=== PATIENT | male | born 1990 | race Caucasian/White ===

== ENCOUNTER 2019-12-15 16:18 | Emergency (ER) | payer MEDICAID, SELFPAY ==
[2019-12-15 16:22] VITALS: BP 116/78; PULSE 98; RESP 14; TEMP 36.9; O2SAT 97; BMI 25.7
--- NOTE | 2019-12-15 16:28 | W.ED.GENADLT ---
HPI - General Adult General: Chief complaint: General Medical Stated complaint: wants std check Time Seen by Provider: 12/15/19 16:26 Source: patient Mode of arrival: ambulatory Limitations: no limitations History of Present Illness: HPI narrative: Patient comes in today with complaints of urinary difficulty and discomfort. Patient states his girlfriend has tested positive for trichomonas. Patient denies any fever or chills. Review of Systems General: Reports: 10 or more systems reviewed and unremarkable except in HPI and below : Reports: painful urination PFSH ED PFSH: Statuses (acute, chronic, etc) shown below reflect problem list status as previously entered and may not be historically accurate Social History Smoking and tobacco status: current every day smoker Physical Exam Const: COMMON NORMALS: no apparent distress and oriented x3 GENERAL APPEARANCE: cooperative HENMT: COMMON NORMALS: normocephalic, external ears normal, EAC's normal, TM's normal bilaterally and external nose normal HEAD & SCALP: normal to inspection and normocephalic FACE & SINUS: normal facial exam NOSE: external nose normal GENERAL EAR: hearing not grossly impaired EXTERNAL EAR: Yes external ears normal EXTERNAL AUDITORY CANAL: EAC's normal TYMPANIC MEMBRANE: TM's normal bilaterally MOUTH: oral and palatal mucosa normal THROAT: posterior oropharynx normal Eye: COMMON NORMALS: PERRL and EOMs intact bilaterally PUPIL: Yes PERRL Neck/C-Spine: COMMON NORMALS: full ROM and no lymphadenopathy Lymph: LYMPHATIC: no lymphedema noted Chest: COMMONS NORMALS: inspection of chest normal and palpation of chest normal Resp: COMMON NORMALS: normal respiratory effort and clear to auscultation bilaterally AUSCULTATION: clear to auscultation bilaterally Cardio: COMMON NORMALS: regular rate and regular rhythm RATE: regular rate RHYTHM: regular rhythm GI: COMMON NORMALS: normal to inspection, nondistended, normoactive bowel sounds and non-tender : COMMON NORMALS: Yes no CVA tenderness BLADDER/KIDNEY EXAM: Yes no CVA tenderness Back/Pelvis: COMMON NORMALS: no CVA tenderness and thoracic and lumbar spine normal to inspection Extremity: COMMON NORMALS: normal to inspection GENERAL: No edema Neuro: COMMON NORMALS: oriented x3, moves all extremities and no focal motor deficits Psych: COMMON NORMALS: mental status grossly normal and cooperative Skin: COMMON NORMALS: no rashes or lesions noted GENERAL SKIN EXAM: no rashes or lesions noted Course Vital Signs: Vital signs: Vital Signs Temperature 98.5 F 12/15/19 16:22 Pulse Rate 98 12/15/19 16:22 Respiratory Rate 14 12/15/19 16:22 Blood Pressure 116/78 12/15/19 16:22 Pulse Oximetry 97 12/15/19 16:22 MDM - General Adult MDM Narrative: Medical decision making narrative: Patient comes in today for complaints of exposure to trichomonas. Exam respirations were even lungs were clear to auscultation. Abdomen soft nontender. Differential diagnosis includes STI, contact dermatitis, urethritis, trichomonas. Patient was given metronidazole 500 mg to take 2000 mg x 1 for infection. Encourage plenty of fluids and activity. Reviewed exam and treatment with patient. Patient reports understanding agreed to plan. 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
== END 2019-12-15 16:43 | disposition home or self-care (01) ==
LOC: ER 16:52
PROVIDERS: Emergency Provider Nurse Practitioner Family
DX: Z20.2 Contact with and (suspected) exposure to infections with a predominantly sexual mode of transmission (principal); F17.200 Nicotine dependence, unspecified, uncomplicated
CPT/HCPCS: 99281

== ENCOUNTER 2020-01-07 20:11 | Emergency (ER) | payer MEDICAID, SELFPAY ==
[2020-01-07 20:39] VITALS: BP 133/94; PULSE 99; RESP 16; TEMP 37.4; O2SAT 96; BMI 28.3
== END 2020-01-07 23:40 | disposition left against medical advice (07) ==
LOC: ER 20:36
PROVIDERS: Emergency Provider Emergency Medicine
DX: K92.0 Hematemesis (principal); K21.9 Gastro-esophageal reflux disease without esophagitis; F17.200 Nicotine dependence, unspecified, uncomplicated; Z53.21 Procedure and treatment not carried out due to patient leaving prior to being seen by health care provider
CPT/HCPCS: 99281

== ENCOUNTER 2020-01-08 17:26 | Emergency (ER) | payer MEDICAID, SELFPAY ==
[2020-01-08 17:31] VITALS: BP 113/82; PULSE 101; RESP 15; TEMP 36.7; O2SAT 96; BMI 28.3
== END 2020-01-08 20:27 | disposition left against medical advice (07) ==
LOC: ER 19:28
PROVIDERS: Emergency Provider Emergency Medicine
DX: K92.0 Hematemesis (principal); R10.9 Unspecified abdominal pain; F17.200 Nicotine dependence, unspecified, uncomplicated; Z53.21 Procedure and treatment not carried out due to patient leaving prior to being seen by health care provider
CPT/HCPCS: 99281

== ENCOUNTER 2020-01-09 16:58 | Emergency (ER) | payer MEDICAID, SELFPAY ==
[2020-01-09] VITALS (28 sets, daily range): BP systolic 94–127; BP diastolic 56–81; PULSE 79–92; RESP 16–18; TEMP 37.3; O2SAT 94–100; BMI 28.3
--- NOTE | 2020-01-09 17:56 | ED_ITS ---
Entered by Yola Payton, acting as scribe for Brandi Bennett MD HPI - Abdominal Pain General: Chief Complaint: Abdominal Pain Stated Complaint: throwing up blood Time Seen by Provider: 01/09/20 17:51 Source: patient Mode of arrival: ambulatory Limitations: no limitations History of Present Illness: HPI narrative: 29 yo Male presents to ED with complaint of abdominal pain and vomiting blood. Pt states that he is having burning in his right upper quadrant. Pt states that he has been throwing up blood. Pt states that it is light red in color. Pt states that he has been vomiting for about 3 months. Pt states that at first he thought it was something he ate. Pt states that he does still have his gallbladder and doesn't have any ulcers that he knows of. Pt states that he hasn't had insurance so he hasn't been seen by anyone for this. Pt states that he has been throwing up about 3 times a day. Pt states that he has acid reflux really bad but he isn't taking anything for it. Pt states that he isn't having any blood in his bowel movements. Pt states that he has had burning when he urinates. MD elicited complaint: abdominal pain Pertinent past history: none Onset (ago): month(s) (3) Pain Consistency: intermittent Location: Diffuse Quality: burning Radiation: none Migration to: no migration Exacerbating factors: eating and vomiting Relieving factors: nothing Associated Symptoms: Reports heartburn, hematemesis, nausea and vomiting; Denies change in bowel habits, chills and fever(s) Review of Systems General: Reports: 10 or more systems reviewed and unremarkable except in HPI and below Const: Denies: fever or chills Eyes: Denies: change in vision ENMT: Denies: throat pain Card: Denies: chest pain Resp: Denies: shortness of breath GI: Reports: abdominal pain, nausea, vomiting, vomiting blood and heartburn/indigestion; Denies: change in bowel habits Musc: Denies: muscle weakness Skin/Breast: Denies: rash Neuro: Denies: headache Psych: Denies: hopelessness or suicidal ideation Endo: Denies: excessive urination Marcial/Lymph: Denies: easy bruising or easy bleeding All/Imm: Denies: hives PFS ED PFSH: Social History Smoking and tobacco status: current every day smoker Physical Exam Const: COMMON NORMALS: no apparent distress, oriented x3, alert and well nourished HENMT: COMMON NORMALS: normocephalic and external nose normal HEAD & SCALP: normocephalic NOSE: external nose normal MOUTH: no trismus Eye: COMMON NORMALS: EOMs intact bilaterally and conjunctivae normal CONJUNCTIVA: Yes conjunctivae normal Neck/C-Spine: COMMON NORMALS: full ROM, no lymphadenopathy and supple CERVICAL SPINE: Yes cervical ROM normal Lymph: LYMPHATIC: no lymphadenopathy noted Resp: COMMON NORMALS: normal respiratory effort, no retractions, no use of accessory muscles and clear to auscultation bilaterally EFFORT & INSPECTION: Yes able to speak in complete sentences AUSCULTATION: clear to auscultation bilaterally Cardio: COMMON NORMALS: regular rate and regular rhythm RATE: regular rate RHYTHM: regular rhythm GI: COMMON NORMALS: normal to inspection, nondistended, normoactive bowel sounds, soft to palpation and no masses; negative for non-tender INSPECTION: Yes normal to inspection AUSCULTATION: Yes normoactive bowel sounds PALPATION: Yes soft, Yes tender Details: other (diffusely), No guarding and No rigid Back/Pelvis: OTHER: Normal range of motion Extremity: GENERAL: Yes normal exam except as noted Neuro: COMMON NORMALS: oriented x3 and CN's II-XII intact bilaterally SENSORIUM/ORIENTATION: Yes alert SPEECH: speech normal Psych: COMMON NORMALS: mental status grossly normal Skin: COMMON NORMALS: no rashes or lesions noted GENERAL SKIN EXAM: no rashes or lesions noted Course Vital Signs: Vital signs: Vital Signs Temperature 99.1 F 01/09/20 17:26 Pulse Rate 92 01/09/20 19:28 Respiratory Rate 16 01/09/20 19:28 Blood Pressure 94/63 01/09/20 19:28 Pulse Oximetry 94 01/09/20 19:30 MDM - Abdominal Pain Lab Data: Labs: Lab Results 01/09/20 01/09/20 01/09/20 Range/Units 17:54 17:54 17:54 WBC 10.2 H (4.0-10.0) 10^3/ uL RBC 5.06 (4.1-5.3) 10^6/u L Hgb 15.7 (11.7-16.6) g/dL Hct 44.2 (42.0-52.0) % MCV 87.4 (80-94) fL MCH 31.0 (28.0-34.0) pg MCHC 35.5 (30.0-36.0) g/dL RDW 11.9 L (12.1-15.1) % Plt Count 354 (130-400) 10^3/c mm MPV 10.2 (7.4-10.4) fL Neut % (Auto) 61.7 % Lymph % (Auto) 28.2 % [facility] % (Auto) 7.7 % Eos % (Auto) 1.5 % Baso % (Auto) 0.7 % Neut # (Auto) 6.3 (1.8-7.7) 10^3/u L Lymph # (Auto) 2.9 (0.8-4.8) 10^3/u L [facility] # (Auto) 0.8 (0.2-0.9) 10^3/u L Eos # (Auto) 0.2 (0.0-0.8) 10^3/u L Baso # (Auto) 0.1 (0.0-0.1) 10^3/u L Nucleated RBC % (a uto) 0 % Nucleated RBCs # 0.0 /100WBC PT 13.70 H (10.5-13.3) SECO NDS INR 1.02 (0.8-1.2) Sodium 141 (136-145) mmol/L Potassium 3.9 (3.5-5.1) mmol/L Chloride 102 (98-107) mmol/L Carbon Dioxide 25 (22-29) mmol/L Anion Gap 17.9 (5-19) BUN 12 (6-20) mg/dL Creatinine 0.8 (0.7-1.2) mg/dL GFR Calculation 116.0 (90-130) mL/min Glucose 96 (65-115) mg/dL Calcium 9.3 (8.5-10.5) mg/dL Total Bilirubin 0.2 (0.15-1.2) mg/dL AST 18 (0-40) U/L ALT 15 (0-41) U/L Alkaline Phosphata se 68 (40-130) IU/L Total Protein 6.9 (6.6-8.7) g/dL Albumin 4.8 (3.5-5.2) g/dL Globulin 2.1 (1.3-4.6) g/dL Imaging Data ^: CT Abd/Pel: Radiologist's impression: [facility] [address] [place] [address] CT Scan Report Signed Patient: Dakota Beatty #: [id number] : 1990Acct#:[id number] Age/Sex: Date: [birth year] Loc: ERRoom/Bed: Attending Dr: Ordering Provider/Ordering MD: Brandi Bennett MD Date of Service: 01/09/20 Procedure(s): CT abdomen pelvis wo con [id number] Accession Number(s): [id number] Report Number: [id number] PROCEDURE INFORMATION: Exam: CT Abdomen And Pelvis Without Contrast Exam date and time: 01/09/2020 6:37 PM Age: 29 years old Clinical indication: Abdominal pain; Localized; Right upper quadrant (ruq); Additional info: Upper abdd pain, voiting blood TECHNIQUE: Imaging protocol: Computed tomography of the abdomen and pelvis without contrast. Total DLP: 1113.02 mGy-cm Radiation optimization: All CT scans at this facility use at least one of these dose optimization techniques: automated exposure control; mA and/or kV adjustment per patient size (includes targeted exams where dose is matched to clinical indication); or iterative reconstruction. COMPARISON: No relevant prior studies available. FINDINGS: Lungs: Lung bases clear. Liver: Unremarkable. No mass. Gallbladder and bile ducts: Gallbladder contracted. No visible cholelithiasis. No visible intra or extrahepatic biliary ectasia. Pancreas: Normal. No ductal dilation. Spleen: Normal. No splenomegaly. Adrenals: Normal. No mass. Kidneys and ureters: Normal. No hydronephrosis. Stomach and bowel: Nonobstructive bowel pattern. No evidence for adynamic or reactive ileus. Appendix: No evidence of appendicitis. Intraperitoneal space: Unremarkable. No free air. No significant fluid collection. Vasculature: Unremarkable. No abdominal aortic aneurysm. Lymph nodes: Unremarkable. No enlarged lymph nodes. Bladder: Unremarkable as visualized. Reproductive: Unremarkable as visualized. Bones/joints: Unremarkable. No acute fracture. Soft tissues: Small right inguinal hernia containing fat only. CT/CT abdomen pelvis wo con [id number] IMPRESSION: No visible evidence of active or acute abdominal or pelvic pathologic process. Radiation Dose CTDIVOL = (mGy): DLP = 1113.02 (mGy-cm) Dictated By:Pito Robert Signed By:Pito RobertSignpawel Date/Time:01/09/202042 DD/ 40 Discharge Plan Discharge Patient Disposition: Home, Self-Care Clinical Impression: Abdominal pain Qualifiers: Abdominal location: upper abdomen, unspecified Qualified Code(s): R10.10 - Upper abdominal pain, unspecified Gastritis Qualifiers: Gastritis type: unspecified gastritis Chronicity: unspecified Gastritis bleeding: presence of bleeding unspecified Qualified Code(s): K29.70 - Gastritis, unspecified, without bleeding Condition: Stable Prescriptions: New omeprazole 20 mg tablet,delayed release (DR/EC) 20 mg PO DAILY Qty: 30 RF: 0 ondansetron HCl [Zofran] 4 mg tablet 4 mg PO Q6H PRN (Reason: nausea and vomiting) Qty: 10 RF: 0 No Action No Known Home Medications RF: 0 Patient Instructions: Cholecystitis (ED), Abdominal Pain (ED) Activity Restrictions/Additional Instructions: If you take your prescriptions to [facility] pharmacy in [place] tomorrow they can add them to your ER bill. As we discussed, avoid caffeine tobacco and alcohol as well as spicy foods that you now have caused your abdominal pain to be worse. Coding Level of Care Code ED Frame Carver Spindle for Chg Fwd Exam Comprehensive The documentation recorded by the Tata davies Carmen, accurately reflects the service I personally performed and the decisions made by me, Brandi Bennett MD Jan 09, 2020 16:58
[2020-01-09 18:15] LABS: Basophils # 0.1 10^3/uL (0.0-0.1); Basophils % 0.7 %; Eosinophils # 0.2 10^3/uL (0.0-0.8); Eosinophils % 1.5 %; Hematocrit 44.2 % (42.0-52.0); Hemoglobin 15.7 g/dL (11.7-16.6); Lymphocytes # 2.9 10^3/uL (0.8-4.8); Lymphocytes % 28.2 %; Mean Corpuscular HGB Conc 35.5 g/dL (30.0-36.0); Mean Corpuscular Volume 87.4 fL (80-94); Mean Platelet Volume 10.2 fL (7.4-10.4); Monocytes # 0.8 10^3/uL (0.2-0.9); Monocytes % 7.7 %; Neutrophils # 6.3 10^3/uL (1.8-7.7); Neutrophils % 61.7 %; Nucleated Red Blood Cells % 0 %; Platelet Count 354 10^3/cmm (130-400); Red Blood Count 5.06 10^6/uL (4.1-5.3); Red Cell Distribution Width 11.9 % (12.1-15.1); White Blood Count 10.2 10^3/uL (4.0-10.0)
[2020-01-09 18:19] LABS: INR 1.02 (0.8-1.2)
[2020-01-09 18:24] LABS: Alanine Aminotransferase 15 U/L (0-41); Albumin Level 4.8 g/dL (3.5-5.2); Alkaline Phosphatase 68 IU/L (40-130); Anion Gap 17.9 (5-19); Aspartate Amino Transferase 18 U/L (0-40); Blood Urea Nitrogen 12 mg/dL (6-20); Calcium 9.3 mg/dL (8.5-10.5); Carbon Dioxide 25 mmol/L (22-29); Chloride 102 mmol/L (98-107); Globulin 2.1 g/dL (1.3-4.6); Glucose 96 mg/dL (65-115); Potassium 3.9 mmol/L (3.5-5.1); Sodium 141 mmol/L (136-145); Total Bilirubin 0.2 mg/dL (0.15-1.2); Total Protein 6.9 g/dL (6.6-8.7)
--- NOTE | 2020-01-09 18:24 | CTR_ITS ---
PROCEDURE INFORMATION: Exam: CT Abdomen And Pelvis Without Contrast Exam date and time: 01/09/2020 6:37 PM Age: 29 years old Clinical indication: Abdominal pain; Localized; Right upper quadrant (ruq); Additional info: Upper abdd pain, voiting blood TECHNIQUE: Imaging protocol: Computed tomography of the abdomen and pelvis without contrast. Total DLP: 1113.02 mGy-cm Radiation optimization: All CT scans at this facility use at least one of these dose optimization techniques: automated exposure control; mA and/or kV adjustment per patient size (includes targeted exams where dose is matched to clinical indication); or iterative reconstruction. COMPARISON: No relevant prior studies available. FINDINGS: Lungs: Lung bases clear. Liver: Unremarkable. No mass. Gallbladder and bile ducts: Gallbladder contracted. No visible cholelithiasis. No visible intra or extrahepatic biliary ectasia. Pancreas: Normal. No ductal dilation. Spleen: Normal. No splenomegaly. Adrenals: Normal. No mass. Kidneys and ureters: Normal. No hydronephrosis. Stomach and bowel: Nonobstructive bowel pattern. No evidence for adynamic or reactive ileus. Appendix: No evidence of appendicitis. Intraperitoneal space: Unremarkable. No free air. No significant fluid collection. Vasculature: Unremarkable. No abdominal aortic aneurysm. Lymph nodes: Unremarkable. No enlarged lymph nodes. Bladder: Unremarkable as visualized. Reproductive: Unremarkable as visualized. Bones/joints: Unremarkable. No acute fracture. Soft tissues: Small right inguinal hernia containing fat only. CT/CT abdomen pelvis wo con [id number] IMPRESSION: No visible evidence of active or acute abdominal or pelvic pathologic process. Radiation Dose CTDIVOL = (mGy): DLP = 1113.02 (mGy-cm)
[2020-01-09] MEDS: famotidine 20 mg/2 mL INJ IVP (18:51)
[2020-01-09] MEDS: sodium chloride 0.9% 1,000 ML 999 ML IV (18:51)
--- NOTE | 2020-01-09 19:22 | PC.NURSE ---
Introduced self to patient and initiated vital signs. Patient presents A&O x 4. NAD, ABCs intact, MAEW and agreeable to treatment. Respirations are even and unlabored. Pt states medications taken before coming to ER are tylenol. Pt states that the chief complaint for the ER visit today is due to abdominal pain and throwing up scant blood. IV observed in left AC and flushed for patency. Pt denies any vision disturbances or lightheadedness. Bed left in lowest position in semi-fowlers with side rails up.Reassured patient of needs and will continue to monitor.
--- NOTE | 2020-01-11 09:58 | DCPLANNER ---
dairy department manager had message to speak with patient about his prescriptions, case manager specialist called [phone] was told that patient did not have a voicemail box set up at this time, unable to speak with patient.
== END 2020-01-09 21:29 | disposition home or self-care (01) ==
PROVIDERS: Emergency Provider Emergency Medicine
DX: K29.71 Gastritis, unspecified, with bleeding (principal); F17.210 Nicotine dependence, cigarettes, uncomplicated
CPT/HCPCS: 12345; 36415; 74176; 80053; 85025; 85610; 96361; 96374; 96375; 99283; J3490; J7030

== ENCOUNTER 2020-01-14 23:17 | Emergency (ER) | payer MEDICAID, SELFPAY ==
[2020-01-14 23:21] VITALS: BP 115/75; PULSE 101; RESP 16; TEMP 38.6; O2SAT 94; BMI 28.3
== END 2020-01-15 00:42 ==
LOC: ER 01-15 13:23
PROVIDERS: Emergency Provider Physician Assistant
DX: R10.9 Unspecified abdominal pain (principal); M54.9 Dorsalgia, unspecified; F17.200 Nicotine dependence, unspecified, uncomplicated; Z53.21 Procedure and treatment not carried out due to patient leaving prior to being seen by health care provider
CPT/HCPCS: 36415; 85025; 99281; 99282